=== PATIENT | male | born 1960 | race Caucasian/White ===

== ENCOUNTER → 2021-02-19 | Outpatient (CLI) | payer OTHER ==
[~2021-02-19] MED LIST: CRESTOR5 MG PO; LISINOPRIL20 MG PO; LOPRESSOR 25 MG25 MG PO; NORVASC 5 MG TAB5 MG PO; SILDENAFIL20 MG PO; VASCEPA1 GM PO; VITAMIN D21250 MCG PO; ZETIA 10 MG TAB10 MG PO
== END ==
LOC: HEART 5 15:32
DX: J20.9 Acute bronchitis, unspecified (principal); I20.9 Angina pectoris, unspecified; M24.573 Contracture, unspecified ankle; M19.90 Unspecified osteoarthritis, unspecified site; M77.8 Other enthesopathies, not elsewhere classified; J44.9 Chronic obstructive pulmonary disease, unspecified
CPT/HCPCS: 94060

== ENCOUNTER → 2021-07-28 | Outpatient (CLI) | payer OTHER | LOC: KOH-I 10:25 | DX: F17.210 Nicotine dependence, cigarettes, uncomplicated (principal) | CPT/HCPCS: 71271 ==

== ENCOUNTER → 2021-12-11 | Outpatient (CLI) | payer OTHER | LOC: EXRD 08:52 | DX: R20.8 Other disturbances of skin sensation (principal) | CPT/HCPCS: 71046 ==